=== PATIENT | female | born 1995 | race Hispanic/Latino ===

== ENCOUNTER 2024-03-11 05:30 | Inpatient (IN) | payer BC ==
[2024-03-09 09:02] LABS: Hematocrit 30.8 % (34.9-44.5); Hemoglobin 11.1 g/dL (12.0-15.5); Mean Corpuscular Hemoglobin 32.7 pg (27.0-33.0); Mean Corpuscular Volume 90.9 fL (81.6-98.3); Mean Platelet Volume 9.9 fL (7.4-10.4); Platelet Count 158 10x3/uL (150-450); RBC Distribution Width 13.2 % (11.5-14.5); Red Blood Cell (RBC) Count 3.39 10x6/uL (3.90-5.03); White Blood Cell (WBC) Count 6.5 10x3/uL (3.5-10.5)
[2024-03-09 09:41] LABS: HBsAg Index 0.19 S/CO (0-0.99); Hep B Surf Ag Non-Reactive S/CO (NonReactive)
[2024-03-09 09:43] LABS: Syphilis Antibody Nonreactive (Nonreactive); Syphilis Antibody Index 0.05 S/CO (<1.00 Non-Reactive)
[2024-03-11 05:55] VITALS: BMI 25.7
[2024-03-11] MEDS ORDERED: Misoprostol 200 MCG TAB PR PRN (05:55)
[2024-03-11] MEDS ORDERED: hydrALAZINE 20 MG/ML VIAL SLOW IVP PRN ×2 (05:55→11:23)
[2024-03-11] MEDS ORDERED: Carboprost 250 MCG/ML AMP IM PRN (05:55)
[2024-03-11] MEDS ORDERED: Bicitra 30 ML UDCUP PO PRN (05:55)
[2024-03-11] MEDS ORDERED: Promethazine HCl 25 MG/ML VIAL IM PRN ×2 (05:55→09:19)
[2024-03-11] MEDS ORDERED: Ondansetron PF 4 MG/2 ML Vial IVP PRN ×3 (05:55→09:19)
[2024-03-11] MEDS ORDERED: Diphenoxylate HCl/Atropine Tablet PO PRN ×2 (05:55)
[2024-03-11] MEDS ORDERED: Famotidine/PF 20 mg/2ml Vial SLOW IVP PRN (05:55)
[2024-03-11] MEDS ORDERED: Methylergonovine 0.2 MG/ML VIAL IM PRN (05:55)
[2024-03-11] MEDS ORDERED: Lactated Ringer's 1,000 ML IV SCH (06:00)
[2024-03-11] MEDS ORDERED: Oxytocin 30 units/NS 500 ML 500 ML IV SCH (06:00)
[2024-03-11] MEDS: CEFAZOLIN 2 GM in Sodium Chloride 0.9% 100 ML IVPB SCH (07:09)
[2024-03-11] MEDS ORDERED: fentaNYL 50 mcg/mL 1 mL Vial SLOW IVP PRN (09:19)
[2024-03-11] MEDS ORDERED: Meperidine HCl/PF 25 MG (1 mL) VIAL SLOW IVP PRN (09:19)
[2024-03-11] MEDS ORDERED: Morphine 4 MG/ML VIAL SLOW IVP PRN (09:19)
[2024-03-11] MEDS ORDERED: Moisturizing Cream (Eucerin) 113 GM JAR TOP PRN (09:19)
[2024-03-11] MEDS ORDERED: Naloxone HCl 0.4 mg/ml Vial IVP PRN ×2 (09:19)
[2024-03-11] MEDS ORDERED: diphenhydrAMINE 50 MG/ML VIAL IVP PRN (09:19)
[2024-03-11] MEDS ORDERED: Naloxone HCl 0.4 mg/ml Vial IV PRN (09:19)
[2024-03-11] MEDS ORDERED: Communication Order-Pharmacy FS SCH (09:30)
[2024-03-11] MEDS ORDERED: Ketorolac Tromethamine 30 MG (1 mL) VIAL IVP SCH ×2 (09:30)
[2024-03-11] MEDS ORDERED: Acetaminophen 325 MG TAB PO PRN (11:23)
[2024-03-11] MEDS ORDERED: Bisacodyl 10 MG SUPP PR PRN (11:23)
[2024-03-11] MEDS ORDERED: diphenhydrAMINE 25 MG CAP PO PRN (11:23)
[2024-03-11] MEDS ORDERED: Lanolin Ointment 7 GM TUBE TOP PRN (11:23)
[2024-03-11] MEDS: Carboprost 250 MCG/ML AMP ONE (12:19)
[2024-03-11] MEDS: Dexamethasone 10 MG/ML VIAL ONE ×2 (12:19→12:21)
[2024-03-11] MEDS: Misoprostol 200 MCG TAB ONE (12:19)
[2024-03-11] MEDS: Methylergonovine 0.2 MG/ML VIAL ONE (12:19)
[2024-03-11] MEDS: Tranexamic Acid 1,000 MG/10 ML VIAL ONE (12:19)
[2024-03-11] MEDS: Metoclopramide HCl 10 MG (2 mL) VIAL ONE (12:20)
[2024-03-11] MEDS: Oxytocin 10 UNITS/ML VIAL ONE ×3 (12:20→12:21)
[2024-03-11] MEDS: Neostigmine 1 MG/ML in 5 ML SYRINGE ONE (12:20)
[2024-03-11] MEDS: PHENYLEPHRINE-NS 100 MCG/ML 10 ML SYRINGE ONE (12:20)
[2024-03-11] MEDS: Promethazine HCl 25 MG/ML VIAL ONE (12:20)
[2024-03-11] MEDS: Dexmedetomidine 200 MCG/2 ML VIAL ONE (12:21)
[2024-03-11] MEDS: Ondansetron PF 4 MG/2 ML Vial ONE (12:21)
[2024-03-11] MEDS: Morphine PF 10 MG/10 ML VIAL ONE (12:21)
[2024-03-11] MEDS: Boostrix 0.5 ML (Tdap) VIAL (>/=7 yrs of age) IM ONE (12:22)
[2024-03-11] MEDS: Ketorolac Tromethamine 30 MG (1 mL) VIAL IVP SCH (12:29)
[2024-03-11] MEDS ORDERED: HYDROcodone/Acetaminophen 5/325 mg Tablet PO PRN (21:30)
[2024-03-11] MEDS: Docusate 100 MG CAP PO SCH (22:21)
[2024-03-12 03:58] LABS: Hematocrit 25.4 % (34.9-44.5); Hemoglobin 9.3 g/dL (12.0-15.5); Mean Corpuscular HGB CONC 36.6 g/dL (32.0-36.0); Mean Corpuscular Hemoglobin 33.6 pg (27.0-33.0); Mean Corpuscular Volume 91.7 fL (81.6-98.3); Mean Platelet Volume 10.4 fL (7.4-10.4); Platelet Count 136 10x3/uL (150-450); RBC Distribution Width 13.1 % (11.5-14.5); Red Blood Cell (RBC) Count 2.77 10x6/uL (3.90-5.03); White Blood Cell (WBC) Count 9.8 10x3/uL (3.5-10.5)
[2024-03-12] MEDS: Simethicone Chewable 80 MG TAB PO PRN (08:01)
[2024-03-12] MEDS: Prenatal Vitamin 1 TAB PO SCH (08:02)
[2024-03-12] MEDS: HYDROcodone/Acetaminophen 5/325 mg Tablet PO PRN (08:02)
[2024-03-12] MEDS ORDERED: Acetaminophen 325 MG TAB PO PRN (10:26)
[2024-03-12] MEDS: HYDROcodone/Acetaminophen 10/325 mg Tablet PO PRN (12:40)
[2024-03-12] MEDS: Ibuprofen 800 MG TAB PO SCH (14:29)
[2024-03-13 07:54] VITALS: BP 116/75; TEMP 98.3
== END 2024-03-13 14:30 | disposition home or self-care (01) | DRG 788 ==
LOC: CSHLD 05:30 → CSHPP 11:30
PROVIDERS: ADMIT Obstetrics & Gynecology; ATTEND Obstetrics & Gynecology
PROC: 10D00Z1 Extraction of Products of Conception, Low, Open Approach (ICD-10-PCS; principal; 2024-03-11)
DX: O34.211 Maternal care for low transverse scar from previous cesarean delivery (principal); Z3A.39 39 weeks gestation of pregnancy; Z90.49 Acquired absence of other specified parts of digestive tract; Z37.0 Single live birth; O90.0 Disruption of cesarean delivery wound
CPT/HCPCS: 51702; 85027; 86780; 86850; 86900; 86901; 87340; J1100; J1885; J2274; J2405; J2550; J2590; J2765